=== PATIENT | female | born 1985 | race Two or more races ===

== ENCOUNTER 2017-08-17 15:25 | Inpatient (IN) | payer SELFPAY ==
[~2017-08-17] VITALS: Ht 154.9 cm; Wt 64.8 kg
[2017-08-17] MEDS ORDERED: LORazepam 2MG/ML-1ML VIAL IV ONE (20:30)
[2017-08-17] MEDS ORDERED: SODIUM CHLORIDE 0.9% 1,000 ML IV ONE (20:30)
[2017-08-17 20:40] LABS: Basophils # (auto) 0 uL; Basophils % (auto) 0.2 % (0.0-2.0); Eosinophils # (auto) 0 uL; Eosinophils % (auto) 0.3 % (0.0-7.0); Hematocrit 39.1 % (36.0-46.0); Hemoglobin 13.1 g/dL (12.2-16.2); Lymphocytes # (auto) 1.4 uL; Lymphocytes % (auto) 9.1 % (10.0-50.0); Mean Corpuscular Hemoglobin 32.3 pg (28.0-32.0); Mean Corpuscular Hgb Conc. 33.4 g/dL (32.0-36.0); Mean Corpuscular Volume 96.7 fL (80.0-100.0); Mean Platelet Volume 9.4 fL (6.9-10.8); Monocytes # (auto) 0.8 uL; Monocytes % (auto) 5.4 % (0.0-12.0); Neutrophils # (auto) 12.6 uL; Platelet Count (auto) 195 10^3/uL (140-450); Red Cell Distribution Width 12.3 % (11.8-14.3); White Blood Cell 14.8 10^3/uL (4.4-10.8)
[2017-08-17 20:54] LABS: Urine Bilirubin Negative (Negative); Urine Blood Negative /uL (Negative); Urine Color Yellow (Yellow); Urine Glucose Normal (Normal); Urine Ketone 2+ (Negative); Urine Mucus FEW (None Seen); Urine Nitrite Negative (Negative); Urine RBC 1 /hpf (0 - 4); Urine Squamous Epithelial Cell FEW /hpf (<5); Urine pH 5.5 (5.0-8.0)
[2017-08-17 20:59] LABS: Albumin 3.1 g/dL (3.4-5.0); BUN/Creatinine Ratio 12.7; Calcium 8.1 mg/dL (8.5-10.1); Magnesium 1.9 mg/dL (1.6-2.6); Potassium 3.4 mmol/L (3.5-5.1)
[2017-08-17 21:02] LABS: Bilirubin, Total 0.6 mg/dL (0.2-1.0); Total Protein 6.7 g/dL (6.4-8.2)
[2017-08-17 21:13] LABS: Allen Test Yes; Base Excess -6.1 mmol/L (-2.0-2.0); Blood 02Sat 93.8 % (96-100); Blood COHb 0.4 % (0.5-1.5); Blood MetHb 0.1 % (0.0-1.5); HHb 6.2 % (0.0-5.0); MODE ROOM AIR; O2Hb 93.3 % (94.0-97.0); PO2 72.5 mmHg (80.0-100.0); PO2(T) 72.5 mmHg (80.0-100.0); Sample Type Arterial; pH 7.418 (7.350-7.450)
[2017-08-17 21:30] LABS: B-Type Natriuretic Peptide < 5.0 pg/mL (0-100)
[2017-08-17 21:31] LABS: Temperature: 21.5 C (20.0-25.0)
[2017-08-17] MEDS ORDERED: PIPERACILLIN-TAZOB 3.375GM 50 ML IV ONE (22:43)
[2017-08-17] MEDS: PIPERACILLIN-TAZOB 3.375GM 50 ML IV ONE ×2 (22:44→22:59)
[2017-08-17] MEDS: SODIUM CHLORIDE 0.9% 1,000 ML IV SCH (22:59)
[2017-08-17 23:47] VITALS: BP 98/55
[2017-08-17] MEDS: PIPERACILLIN-TAZOB 3.375GM 50 ML IV SCH (23:51)
[2017-08-18] MEDS: ALBUTEROL SULF 2.5 MG/0.5ML(0.5%) NEB SOLN NEB PRN ×3 (00:29→11:44)
[2017-08-18] MEDS: IPRATROPIUM BROM 0.5 MG/2.5ML INH SOL NEB SCH ×4 (00:29→19:40)
[2017-08-18 04:15] LABS: Basophils # (auto) 0 uL; Basophils % (auto) 0.2 % (0.0-2.0); Eosinophils # (auto) 0.1 uL; Eosinophils % (auto) 0.5 % (0.0-7.0); Hematocrit 35.3 % (36.0-46.0); Hemoglobin 12.2 g/dL (12.2-16.2); Lymphocytes # (auto) 1.4 uL; Lymphocytes % (auto) 12.6 % (10.0-50.0); Mean Corpuscular Hemoglobin 33.1 pg (28.0-32.0); Mean Corpuscular Hgb Conc. 34.5 g/dL (32.0-36.0); Mean Corpuscular Volume 95.9 fL (80.0-100.0); Monocytes # (auto) 0.8 uL; Monocytes % (auto) 7.5 % (0.0-12.0); Neutrophils # (auto) 8.7 uL; Neutrophils % (auto) 79.2 % (37.0-80.0); Platelet Count (auto) 189 10^3/uL (140-450); Red Cell Distribution Width 12.7 % (11.8-14.3)
[2017-08-18 04:40] LABS: Potassium 3.9 mmol/L (3.5-5.1)
[2017-08-18 04:45] LABS: Albumin 2.7 g/dL (3.4-5.0); BUN/Creatinine Ratio 13.2; Calcium 8.1 mg/dL (8.5-10.1)
[2017-08-18 04:48] LABS: Total Protein 6.1 g/dL (6.4-8.2)
[2017-08-18] MEDS: SODIUM CHLORIDE 0.9% 1,000 ML IV SCH ×2 (05:41→12:40)
[2017-08-18] MEDS: PIPERACILLIN-TAZOB 3.375GM 50 ML IV SCH ×3 (05:50→17:35)
[2017-08-18 12:04] VITALS: BP 97/57
[2017-08-18] MEDS: ENOXAPARIN SOD 30 MG/0.3 ML SYRINGE SC SCH (12:39)
[2017-08-18] MEDS: PANTOPRAZOLE 40 MG/10 ML VIAL IV SCH (12:40)
[2017-08-18] MEDS ORDERED: HYDROcodone-ACET 5/325MG TAB PO PRN (12:45)
[2017-08-18] MEDS ORDERED: VANCOMYCIN PER PHARMACY 0 MG IV SCH (12:45)
[2017-08-18] MEDS ORDERED: ACETAMINOPHEN 325 MG TAB PO PRN (12:45)
[2017-08-18] MEDS: VANCOMYCIN 1GM/250ML 250 ML IV SCH (15:40)
[2017-08-18 16:25] VITALS: BP 98/54
[2017-08-18 21:55] VITALS: BP 101/60
[2017-08-19] MEDS: IPRATROPIUM BROM 0.5 MG/2.5ML INH SOL NEB SCH ×3 (00:35→11:45)
[2017-08-19] MEDS: SODIUM CHLORIDE 0.9% 1,000 ML IV SCH ×2 (01:39→04:09)
[2017-08-19] MEDS: VANCOMYCIN 1GM/250ML 250 ML IV SCH (03:00)
[2017-08-19 04:55] VITALS: BP 108/60
[2017-08-19] MEDS: PIPERACILLIN-TAZOB 3.375GM 50 ML IV SCH ×3 (05:58→10:48)
[2017-08-19 06:32] LABS: Basophils # (auto) 0 uL; Basophils % (auto) 0.5 % (0.0-2.0); Eosinophils # (auto) 0.1 uL; Eosinophils % (auto) 1.6 % (0.0-7.0); Hematocrit 35.1 % (36.0-46.0); Lymphocytes # (auto) 1.2 uL; Lymphocytes % (auto) 15.1 % (10.0-50.0); Mean Corpuscular Hgb Conc. 34.3 g/dL (32.0-36.0); Mean Corpuscular Volume 96.2 fL (80.0-100.0); Mean Platelet Volume 9.2 fL (6.9-10.8); Monocytes # (auto) 0.5 uL; Monocytes % (auto) 7.1 % (0.0-12.0); Neutrophils # (auto) 5.8 uL; Neutrophils % (auto) 75.7 % (37.0-80.0); Platelet Count (auto) 202 10^3/uL (140-450); Red Cell Distribution Width 12.6 % (11.8-14.3); White Blood Cell 7.6 10^3/uL (4.4-10.8)
[2017-08-19 06:42] LABS: Albumin 2.6 g/dL (3.4-5.0); BUN/Creatinine Ratio 18.9; Calcium 8.2 mg/dL (8.5-10.1); Potassium 3.8 mmol/L (3.5-5.1)
[2017-08-19 06:45] LABS: Bilirubin, Total 0.7 mg/dL (0.2-1.0); Total Protein 6.6 g/dL (6.4-8.2)
[2017-08-19] MEDS: PANTOPRAZOLE 40 MG/10 ML VIAL IV SCH (08:51)
[2017-08-19] MEDS: ENOXAPARIN SOD 30 MG/0.3 ML SYRINGE SC SCH (08:52)
[2017-08-19 09:38] VITALS: BP 110/69
[2017-08-19] MEDS ORDERED: ALBUTEROL SULF 2.5 MG/0.5ML(0.5%) NEB SOLN ONE (11:29)
[2017-08-19] MEDS ORDERED: IPRATROPIUM BROM 0.5 MG/2.5ML INH SOL ONE (11:30)
[2017-08-19] MEDS: ALBUTEROL SULF 2.5 MG/0.5ML(0.5%) NEB SOLN NEB PRN (11:45)
[2017-08-19 12:18] VITALS: BP 99/54
[2017-08-19 12:49] VITALS: BP 99/54
[2017-08-19] MEDS ORDERED: INFLUENZA QUAD 2017-2018 0.5 ML SYRG IM ONE (13:00)
== END 2017-08-19 13:22 | disposition home or self-care (01) | DRG 195 ==
LOC: ER 15:31 → OVERFLOW 15:32 → WEST WING 08-18 07:57 → CENTRAL 08-18 11:40
PROVIDERS: ADMIT Family Medicine; ATTEND Family Medicine
DX: J18.9 Pneumonia, unspecified organism (principal); F17.210 Nicotine dependence, cigarettes, uncomplicated; J45.909 Unspecified asthma, uncomplicated; R09.1 Pleurisy; R06.03 Acute respiratory distress; F19.10 Other psychoactive substance abuse, uncomplicated; Z59.0 Homelessness; Z23 Encounter for immunization
CPT/HCPCS: 36415; 36600; 71010; 80053; 80307; 81001; 82805; 83605; 83735; 83880; 84484; 85025; 87040; 93005; 94640; C9113; G0378; J2543